=== PATIENT | female | born 2000 | race Caucasian/White ===

== ENCOUNTER 2018-05-27 21:10 | Emergency (ER) | payer BC, MEDICAID ==
[~2018-05-27] VITALS: Ht 152.4 cm; Wt 96.4 kg
[~2018-05-27 21:10] MED LIST: FLAGYL500 M1 PO; KETOROLAC TROME10 MG PO; MIRALAX17 GM PO
[2018-05-27] MEDS ORDERED: PRENATAL 19 TA1 EACH PO (21:30)
[2018-05-27 23:33] VITALS: BP 124/72
== END 2018-05-27 23:33 | disposition home or self-care (01) ==
LOC: ED 21:10
DX: J11.1 Influenza due to unidentified influenza virus with other respiratory manifestations (principal); E86.0 Dehydration
CPT/HCPCS: J7030